=== PATIENT | male | born 1975 | race Caucasian/White ===

== ENCOUNTER 2020-01-24 10:56 | Outpatient (REF) | payer OTHER, SELFPAY ==
[2020-01-24 14:26] LABS: Alanine Aminotransferase 30 U/L (0-40); Albumin Level 4.5 g/dL (3.5-5.0); Alkaline Phosphatase 74 U/L (39-117); Anion Gap 12 (12-20); Aspartate Amino Transferase 19 U/L (5-37); Bilirubin Total 0.5 mg/dL (0.0-1.0); Blood Urea Nitrogen 13 mg/dL (9-16); Carbon Dioxide 24 mmol/L (22-29); Chloride 106 mmol/L (96-108); Cholesterol 200 mg/dL; Estimated Glomerular Filt Rate > 60; Glucose Fasting 91 mg/dL (60-99); HDL Cholesterol 32 mg/dL; LDL Cholesterol Calculated 130 mg/dl; Potassium 4.5 mmol/l (3.3-5.1); Sodium 137 mmol/L (135-145); Total Protein 6.8 g/dL (6.5-8.0); Triglycerides 192 mg/dL
[2020-01-24 14:48] LABS: TSH reflex Free T4 0.62 mIU/mL (0.32-4.0)
[2020-01-27 12:26] LABS: Testosterone, Total 536 ng/dL (250-1100)
== END 2020-01-24 10:57 | disposition home or self-care (01) ==
LOC: HO.HMGCLDS 10:56
PROVIDERS: PCP Nurse Practitioner Family; Visit Provider Nurse Practitioner Family
DX: H53.8 Other visual disturbances (principal); R68.82 Decreased libido
CPT/HCPCS: 80053; 80061; 84403; 84443

== ENCOUNTER → 2020-03-27 14:25 | Outpatient (BNVA) | payer OTHER, SELFPAY | PROVIDERS: PCP Nurse Practitioner Family; Visit Provider Urology | DX: N52.9 Male erectile dysfunction, unspecified (principal); R68.82 Decreased libido | CPT/HCPCS: 99202 ==

== ENCOUNTER 2020-09-03 15:21 | Outpatient (REF) | payer OTHER, SELFPAY ==
--- NOTE | ~2020-09-03 | XR_ITS ---
EXAMINATION: XR CHEST CLINICAL INFORMATION: Cough COMPARISON: Previous chest x-ray February 2016 TECHNIQUE: 2 views of the chest were obtained. FINDINGS: The cardiac and mediastinal contours are normal. The lungs are clear. There is no pleural effusion or pneumothorax. Bony structures are unremarkable. XR/XR chest 2V IMPRESSION: Unremarkable examination.
== END 2020-09-03 15:22 | disposition home or self-care (01) ==
LOC: HO.HMGCX 15:21
PROVIDERS: PCP Nurse Practitioner Family; Visit Provider Hospitalist
DX: Z20.822 Contact with and (suspected) exposure to COVID-19 (principal); R05 Cough
CPT/HCPCS: 71046; U0003; U0005

== ENCOUNTER 2022-03-11 07:54 | Outpatient (REF) | payer OTHER, SELFPAY ==
[2022-03-11 11:27] LABS: Appearance Urine Clear; Color Urine Yellow; Glucose Urine UA Negative (Negative); Leukocyte Esterase Urine Negative (Negative); MANUAL DIFF FLAG NO; Nitrite Urine Negative (Negative); PH 6.5 (5.0-9.0); Specific Gravity - Urine 1.015 (1.005-1.025); Urine Blood Negative (Negative); Urine Ketones Negative (Negative); Urine Protein Negative (Neg-Trace)
[2022-03-11 11:47] LABS: Basophils Percent Auto 0.3 % (0-2); Eosinophils Absolute Auto 0.3 X10*3/uL (0.0-0.4); Eosinophils Percent Auto 3.2 % (0-4); Hematocrit 43.6 % (42.0-52.0); Imm Gran Abs Auto 0.07 X10*3/uL (0.00-0.03); Imm Gran Pct Auto 0.8 % (0.0-0.4); Lymphocytes Absolute Auto 2.2 X10*3/uL (1.2-4.9); Lymphocytes Percent Auto 25.1 % (20-40); Mean Corpuscular HGB Conc 34.4 g/dl (31.0-36.0); Mean Corpuscular Hemoglobin 30.9 pg (27.0-33.0); Mean Corpuscular Volume 89.7 fL (80.0-98.0); Mean Platelet Volume 9.8 fL (9.4-12.4); Monocytes Absolute Auto 0.6 X10*3/uL (0.1-1.2); Monocytes Percent Auto 6.8 % (2-11); Neutrophils Absolute Auto 5.5 x10*3/uL (2.0-8.3); Neutrophils Percent Auto 63.8 % (45-73); Platelet Count 348 X10*3/uL (160-400); Red Blood Count 4.86 X10*6/uL (4.60-5.80); Red Cell Distribution Width 12.2 % (11.0-16.0); White Blood Count 8.6 X10*3/uL (4.8-10.8)
[2022-03-11 12:10] LABS: Alanine Aminotransferase 37 U/L (0-40); Albumin Level 4.4 g/dL (3.5-5.0); Alkaline Phosphatase 85 U/L (39-117); Anion Gap 13 (12-20); Aspartate Amino Transferase 21 U/L (5-37); Bilirubin Total 0.6 mg/dL (0.0-1.0); Blood Urea Nitrogen 14 mg/dL (9-16); Calcium 9.3 mg/dL (8.4-10.2); Carbon Dioxide 23 mmol/L (22-29); Chloride 107 mmol/L (96-108); Cholesterol 225 mg/dL; Estimated Glomerular Filt Rate > 60; Glucose Fasting 105 mg/dL (60-99); HDL Cholesterol 31 mg/dL; LDL Cholesterol Calculated 169 mg/dl; Potassium 4.4 mmol/L (3.3-5.1); Sodium 139 mmol/L (135-145); Total Protein 6.9 g/dL (6.5-8.0); Triglycerides 125 mg/dL
[2022-03-11 12:29] LABS: TSH reflex Free T4 0.83 uIU/mL (0.32-4.0)
== END 2022-03-11 07:55 | disposition home or self-care (01) ==
LOC: HO.HMGCLDS 07:54
PROVIDERS: PCP Nurse Practitioner Family; Visit Provider Nurse Practitioner Family
DX: Z00.00 Encounter for general adult medical examination without abnormal findings (principal)
CPT/HCPCS: 36415; 80053; 80061; 81003; 84443; 85025

== ENCOUNTER → 2022-04-20 09:02 | Outpatient (BNVA) | payer OTHER, SELFPAY | PROVIDERS: PCP Nurse Practitioner Family; Visit Provider Physician Assistant | DX: Z12.11 Encounter for screening for malignant neoplasm of colon (principal); K21.9 Gastro-esophageal reflux disease without esophagitis | CPT/HCPCS: 99202 ==

== ENCOUNTER 2022-09-09 09:17 | Outpatient (REF) | payer OTHER, SELFPAY ==
[2022-09-09 11:31] LABS: MANUAL DIFF FLAG NO
[2022-09-09 11:38] LABS: Appearance Urine Clear; Color Urine Yellow; Glucose Urine UA Negative (Negative); Leukocyte Esterase Urine Negative (Negative); Nitrite Urine Negative (Negative); PH 5.5 (5.0-9.0); Specific Gravity - Urine 1.015 (1.005-1.025); Urine Blood Negative (Negative); Urine Ketones Negative (Negative); Urine Protein Negative (Neg-Trace)
[2022-09-09 11:39] LABS: Basophils Absolute Auto 0.1 X10*3/uL (0.0-0.2); Basophils Percent Auto 0.5 % (0-2); Hematocrit 41.3 % (42.0-52.0); Hemoglobin 14.1 g/dl (14.0-18.0); Imm Gran Abs Auto 0.04 X10*3/uL (0.00-0.03); Imm Gran Pct Auto 0.4 % (0.0-0.4); Lymphocytes Absolute Auto 2.2 X10*3/uL (1.2-4.9); Lymphocytes Percent Auto 24.3 % (20-40); Mean Corpuscular HGB Conc 34.1 g/dl (31.0-36.0); Mean Corpuscular Hemoglobin 30.5 pg (27.0-33.0); Mean Corpuscular Volume 89.4 fL (80.0-98.0); Mean Platelet Volume 9.5 fL (9.4-12.4); Monocytes Absolute Auto 0.5 X10*3/uL (0.1-1.2); Monocytes Percent Auto 5.7 % (2-11); Neutrophils Absolute Auto 6.3 x10*3/uL (2.0-8.3); Neutrophils Percent Auto 69.1 % (45-73); Platelet Count 284 X10*3/uL (160-400); Red Blood Count 4.62 X10*6/uL (4.60-5.80); Red Cell Distribution Width 12.2 % (11.0-16.0); White Blood Count 9.1 X10*3/uL (4.8-10.8)
[2022-09-09 12:37] LABS: Alanine Aminotransferase 29 U/L (0-40); Albumin Level 4.3 g/dL (3.5-5.0); Alkaline Phosphatase 74 U/L (39-117); Anion Gap 12 (12-20); Aspartate Amino Transferase 20 U/L (5-37); Bilirubin Total 0.6 mg/dL (0.0-1.0); Blood Urea Nitrogen 15 mg/dL (9-16); Calcium 9.4 mg/dL (8.4-10.2); Carbon Dioxide 25 mmol/L (22-29); Chloride 106 mmol/L (96-108); Cholesterol 211 mg/dL; Estimated Glomerular Filt Rate > 60; Glucose Fasting 84 mg/dL (60-99); HDL Cholesterol 34 mg/dL; LDL Cholesterol Calculated 151 mg/dl; Magnesium 2.1 mg/dL (1.6-2.6); Potassium 3.9 mmol/L (3.3-5.1); Sodium 139 mmol/L (135-145); Total Protein 6.8 g/dL (6.5-8.0); Triglycerides 133 mg/dL
[2022-09-09 12:55] LABS: TSH reflex Free T4 0.58 uIU/mL (0.32-4.0)
== END 2022-09-09 09:18 | disposition home or self-care (01) ==
LOC: HO.HMGCLDS 09:17
PROVIDERS: PCP Nurse Practitioner Family; Visit Provider Nurse Practitioner Family
DX: Z00.00 Encounter for general adult medical examination without abnormal findings (principal); M54.16 Radiculopathy, lumbar region
CPT/HCPCS: 36415; 80053; 80061; 81003; 83735; 84443; 85025

== ENCOUNTER 2022-11-05 09:00 | Outpatient (REF) | payer OTHER, SELFPAY ==
--- NOTE | ~2022-11-05 | MR_ITS ---
EXAMINATION: MR LUMBAR SPINE WITHOUT CONTRAST CLINICAL INFORMATION: Prior surgery. Low back pain. Leg pain. COMPARISON: None available. TECHNIQUE: Multiplanar, multisequence imaging was obtained. FINDINGS: VERTEBRAL BODIES AND PARASPINAL STRUCTURES: The marrow signal is homogeneous. The patient is status post posterior lumbar interbody fusion at the L4-L5 and L5-S1 levels. No compression fractures or subluxations are seen. The paraspinal soft tissues are normal. Incidental left-sided pelvic kidney noted. There are mild degenerative changes of the sacroiliac joints. CONUS MEDULLARIS AND CAUDA EQUINE: The distal cord, conus tip, and cauda equina nerve roots appear normal. SPINAL LEVELS: L1-L2: No disc pathology, central canal stenosis, or foraminal narrowing. L2-L3: Normal appearance of the disc. No central canal stenosis or foraminal narrowing. L3-L4: Very mild disc bulge and mild facet arthropathy without central canal stenosis. Bulging disc mildly encroaches upon the neural foramina. L4-L5: Chronic postoperative changes with fusion hardware in place. No central canal stenosis. Bony spurring with very mild left foraminal encroachment. L5-S1: Fusion changes with hardware in place. Left-sided laminectomy defect. Presumed scar tissue in the left ventral epidural soft tissues around the left S1 nerve root. Bony spurring contributes to mild right foraminal encroachment. No central canal stenosis. MR/MR lumbar spine wo con IMPRESSION: Status post posterior lumbar interbody fusion with hardware instrumentation at the L4-L5 and L5-S1 levels. Presumed scar tissue in the left ventral epidural soft tissues at the L5-S1 level around the left S1 nerve root sleeve without mass effect. No focal disc protrusion or central canal stenosis. Mild generalized disc bulge and bilateral foraminal narrowing at the L3-L4 level.
== END 2022-11-05 09:01 | disposition home or self-care (01) ==
LOC: HO.MRI 09:00
PROVIDERS: PCP Nurse Practitioner Family; Visit Provider Nurse Practitioner Family
DX: M54.16 Radiculopathy, lumbar region (principal)
CPT/HCPCS: 72148

== ENCOUNTER 2022-12-16 10:35 | Outpatient (AMB) | payer OTHER, SELFPAY ==
--- NOTE | 2022-12-16 10:44 | A.SPINEOV_ITS ---
Intake Intake Visit Reasons: low back pain Intake Note: Mr. Ferrari is here today c/o low back pain. MRI done @ [facility]. Triple Air Valve Tester Required: No Allergies oxycodone [Percocet] Allergy (Intermediate, Verified 10/07/22 13:58) hives Assessment & Plan Assessment & Plan (1) Chronic lumbar radiculopathy: Code(s): M54.16 - Radiculopathy, lumbar region Plan Dear colleague, Thank you for referring Paul to our office today. Paul is a pleasant 47-year-old male who comes in today with a chief complaint of chronic persistent low back pain despite extensive treatment for his pain. He has a history of a prior 2 level fusion at L4-5, L5-S1 done at [facility]. He reports a very complex historical recount of his back pain in symptomology. He states that he has had left-sided footdrop, left-sided numbness, and left leg numbness since before his surgery for NEOS which never got better. He also states that he has unspecified neck and shoulder pain due to a previous neck surgery. He reports that sometimes he has bilateral radiation of pain down his posterior legs, sometimes he has neck pain that radiates all the way down his back into his legs, and that other times he has isolated pains in his low back. After spending some time in discussion, he reported that his acute symptoms today which bring him into the office are different from the pain that he originally had when seeing providers at [facility] for his previous surgery. The pain he experiences today which brought him to our office is reportedly a low back pain with radiation down his posterior thigh on the right side, terminating at the bottom of his right foot. He reports that he has tried Tylenol, ibuprofen, ice, heat, tens units, aqua therapy, physical therapy, customer care associate, cortisone injections, and acupuncture without alleviation of his symptoms. PMH: GERD, erectile dysfunction. Social hx: Patient does not smoke, reports no substance use. Medications: Albuterol, lamotrigine, omeprazole, sildenafil. Allergies: Percocet. Physical exam: The patient has 4/5 strength with dorsiflexion, knee extension, and hip flexion on the left side. He reports that this is pain limited. Rest of strength is 5/5 in upper and lower extremities. He is able to rise from a seated position without difficulty, but he ambulates with a cane. Gait is somewhat antalgic when using cane. He reports decreased sensation of his entire left lower extremity, sparing his great toe, but reports decreased sensation of his great toe on the right side sparing the rest of his lower extremity. (-) clonus, (-) Olivas's, (-) straight leg raise bilaterally. Imaging review: MRI of the lumbar spine completed in October of this year shows stable fusion of L4-5 and L5-S1. No significant central canal stenosis noted. No significant foraminal stenosis noted on either side of the lumbar spine. Disc height is maintained with no significant disc protrusion. Impression: Paul is a 47-year-old male who comes in with complex chronic low back pain with radicular symptoms down his right lower extremity. Generally speaking his MRI is unremarkable and shows what appears to be a stable L4-5 and L5-1 fusion, with no adjacent segment disease noted. The MRI was reviewed alongside MARILY Yates, and we are both unable to pinpoint any etiology for his symptoms. 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 We discussed the possibility of a spinal cord stimulator which he is not willing to pursue at this time. He did extensively as questions about stem cell research, which I informed him we are unable to provide accurate information about due to the lack of research on this topic in our field for patient with his symptoms. Thank you for allowing us to care for your patient. The total time spent with this visit with this patient was 45 minutes reviewing history, physical exam, MRI imaging review, and implementation of treatment plan or further diagnostic testing Mark Don MD,PhD [facility] Coding Level of Care Code New Pt Level 4 (50683) Diagnoses Chronic lumbar radiculopathy M54.16
== END 2022-12-16 11:41 | disposition home or self-care (01) ==
PROVIDERS: PCP Nurse Practitioner Family; Referring Provider Nurse Practitioner Family; Visit Provider Physician Assistant
DX: M54.16 Radiculopathy, lumbar region (principal)
CPT/HCPCS: 99204

== ENCOUNTER → 2022-12-16 10:35 | Outpatient (BNVA) | payer OTHER, SELFPAY | PROVIDERS: PCP Nurse Practitioner Family; Referring Provider Nurse Practitioner Family; Visit Provider Physician Assistant ==

== ENCOUNTER 2023-01-17 10:33 | Day surgery (SDC) | payer OTHER, SELFPAY ==
[2022-10-07 13:58] VITALS: BMI 27.8
--- NOTE | 2022-10-10 10:24 | P.CONAN_ITS ---
HPI - Anesthesia Eval Consult details Narrative: 47yo M for Upper Endoscopy and Colonoscopy [facility] Active Problems Active Problems: All Active Problems (Updated 09/05/22 @ 07:32 by Willie Jones [facility]) Chronic lumbar radiculopathy (Acute) Chronic GERD (Acute) Physical exam (Acute) Screening for colon cancer (Acute) Tracheobronchitis (Acute) Cough (Acute) Erectile dysfunction (Acute) Decreased sex drive (Acute) Weakness of left lower extremity (Acute) Blurred vision, bilateral (Acute) Numerous skin moles (Acute) Skin lesions (Acute) Past Medical History Medical History (Updated 09/05/22 @ 07:32 [facility] Chronic GERD Erectile dysfunction Lumbar radiculopathy Skin lesions Family History Family History Father No problems noted. Mother No problems noted. Maternal Grandmother Diabetes mellitus Sister No problems noted. Surgical History Surgical History History of back surgery History of repair of ACL No pertinent past surgical history Social History Social History Household Members: Significant Other and Children Housing: House Alcohol intake: current Alcohol intake frequency: holidays/special occasions only Alcohol type: beer Patient Tobacco Use Status: Never used Tobacco e-Cigarette/Vaping Use: Currently Using Substance Use Type: Marijuana Current occupational status: unemployed Meds Allergies Allergy/AdvReac Type Severity Reaction Status Date / Time oxycodone [Percocet] Allergy Intermediate hives Verified 10/07/22 13:58 Home Medications Medication Instructions Recorded Confirmed Last Taken Type lamotrigine 150 mg tablet 150 mg PO DAILY 04/20/22 10/07/22 Unknown History Exam Exam Date and Time: October 10, 2022 1024 Height,Weight and Vital Signs: Height 5 ft 10 in Weight 87.997 kg Pertinent Lab Results Pertinent Lab Results: Laboratory Tests 09/09/22 09/09/22 09:23 09:23 WBC 9.1 Hgb 14.1 Hct 41.3 L Plt Count 284 Sodium 139 Potassium 3.9 Chloride 106 Carbon Dioxide 25 BUN 15 Creatinine 0.83 Assessment and Plan Assessment Anesthesia Assessment: Chart Reviewed
--- NOTE | 2023-01-16 10:55 | P.CONAN_ITS ---
Documented by User: Diane Fiore NP 01/16/23 10:55 HPI - Anesthesia Eval Consult details Narrative: 47yo M for Upper Endoscopy and Colonoscopy [facility] Active Problems Active Problems: All Active Problems (Updated 09/05/22 @ 07:32 by Willie Jones, [facility]) Chronic lumbar radiculopathy (Acute) Chronic GERD (Acute) Physical exam (Acute) Screening for colon cancer (Acute) Tracheobronchitis (Acute) Cough (Acute) Erectile dysfunction (Acute) Decreased sex drive (Acute) Weakness of left lower extremity (Acute) Blurred vision, bilateral (Acute) Numerous skin moles (Acute) Skin lesions (Acute) Past Medical History Medical History PONV (postoperative nausea and vomiting) Erectile dysfunction Skin lesions Chronic GERD Lumbar radiculopathy Family History Family History Father No problems noted. Mother No problems noted. Maternal Grandmother Diabetes mellitus Sister No problems noted. Surgical History Surgical History H/O left knee surgery H/O neck surgery History of repair of ACL History of back surgery No pertinent past surgical history Social History Household Members: Significant Other and Children Housing: House Alcohol intake: current Alcohol intake frequency: holidays/special occasions only Alcohol type: beer Patient Tobacco Use Status: Never used Tobacco Tobacco use type: Cigarette Years Smoked: 10 e-Cigarette/Vaping Use: Currently Using Use of substances other than those prescribed or required for medical reasons: No Substance Use Type: Marijuana Substance Use Type Other:: RECOVERY X 15 YEARS Are you DNR?: No Advance Directives: No Advance Directives Information Provided: Yes Recently lost weight without trying: No Nutrition Risks: No Nutritional Risk Poor oral hygiene: No Current occupational status: unemployed Meds Allergies Allergy/AdvReac Type Severity Reaction Status Date / Time oxycodone [Percocet] Allergy Intermediate hives Verified 10/07/22 13:58 Home Medications Medication Instructions Recorded Confirmed Last Taken Type lamotrigine 150 mg tablet 150 mg PO DAILY 04/20/22 10/07/22 Unknown History clonidine HCl 0.2 mg tablet 0.2 mg PO BID 01/16/23 01/16/23 Unknown History Exam Height,Weight and Vital Signs: Height 5 ft 10 in Weight 87.997 kg Pertinent Lab Results Pertinent Lab Results: Laboratory Tests 09/09/22 09:23 WBC 9.1 Hgb 14.1 Hct 41.3 L Plt Count 284 Sodium 139 Potassium 3.9 Chloride 106 Carbon Dioxide 25 BUN 15 Creatinine 0.83 Assessment and Plan Assessment Anesthesia Assessment: Chart Reviewed Documented by User: Heath Garcia MD 01/17/23 12:42 PMFSH Past Medical History Medical History PONV (postoperative nausea and vomiting) Erectile dysfunction Skin lesions Chronic GERD Lumbar radiculopathy Family History Family History Father No problems noted. Mother No problems noted. Maternal Grandmother Diabetes mellitus Sister No problems noted. Family history of problems with anesthesia: No Surgical History Surgical History H/O left knee surgery H/O neck surgery History of repair of ACL History of back surgery No pertinent past surgical history History of Problems with Anesthesia: No Social History Household Members: Significant Other and Children Housing: House Alcohol intake: current Alcohol intake frequency: holidays/special occasions only Alcohol type: beer Patient Tobacco Use Status: Never used Tobacco Tobacco use type: Cigarette Years Smoked: 10 e-Cigarette/Vaping Use: Currently Using Use of substances other than those prescribed or required for medical reasons: No Substance Use Type: Marijuana Substance Use Type Other:: RECOVERY X 15 YEARS Are you DNR?: No Advance Directives: No Advance Directives Information Provided: Yes Recently lost weight without trying: No Nutrition Risks: No Nutritional Risk Poor oral hygiene: No Current occupational status: unemployed Meds Allergies Allergy/AdvReac Type Severity Reaction Status Date / Time oxycodone [Percocet] Allergy Intermediate hives Verified 10/07/22 13:58 Home Medications Medication Instructions Recorded Confirmed Last Taken Type lamotrigine 150 mg tablet 150 mg PO DAILY 04/20/22 10/07/22 Unknown History clonidine HCl 0.2 mg tablet 0.2 mg PO BID 01/16/23 01/16/23 Unknown History Exam Airway Mallampati Class: II TM Dist: >3cm Neck ROM: Full Loose/Missing/Broken Teeth: Yes Assessment and Plan Assessment Anesthesia Assessment: Anesthesia Plan Discussed Final Anesthetic Review Family History of Problems with Anesthesia: No History of Problems with Anesthesia: No NPO: Yes ASA Class: II Final Preanesthetic Review: No Changes in Pt Med Stat, Meds/Allgs Chart Reviewed, Consent Obtained/Reviewed, Anes Risks/Benef Reviewed and DNR Form (If Appl.) Patient Risk: Low Procedure Risk: Low Anesthetic Plan Anesthetic Plan: MAC: Disposition: Standard PACU
[2023-01-17 10:48] VITALS: BMI 27.4
[2023-01-17 10:52] VITALS: BP 112/78; PULSE 82; RESP 20; TEMP 36.9; O2SAT 96; BMI 27.4
--- NOTE | 2023-01-17 10:52 | P.HPSUR_ITS ---
Pre-Procedural Eval Section A Date of Service: 01/17/23 Section B Chief Complaint: GERD,Screening Details of Present Illness: father had polyps Relevant Family History (Specify if Yes): Yes Relevant Social History: Other (specify) (THC use) Present Medications: see Short Stay Collaborative assessment Medical History: Significant History (Erectile dysfunction Skin lesions Chronic GERD Lumbar radiculopathy) History of Previous Operations: Relevant previous surgery/procedure and date(s) (back surgery, ACL surgery ) Allergies: Allergies Allergy/AdvReac Type Severity Reaction Status Date / Time oxycodone [Percocet] Allergy Intermediate hives Verified 10/07/22 13:58 Review of Systems Sugical H&P ROS: Negative: Constitution, Cardiovascular, Respiratory, Neurological, Psychiatric, Hem-Onc, Allergic/Immunologic, Gastrointestinal, Ivelisse tourinary, Musculoskeletal, Integumentary, Endocrine and Eyes/Ears/Nose/Throat Exam Surgical H&P Exam: Normal: HEENT, Normal: Heart, Normal: Lungs, Normal: Extremities, Normal: Abdomen, Normal: Skin and Normal: Neurological Plan Diagnosis/Plan: Unchanged I have reviewed the history and physical and performed a pertinent physical examination on my patient. No changes have occurred unless specified. Time Spent With Patient Time: Total time managing care of this patient today ____ minutes.
[2023-01-17] MEDS: Lactated Ringers 1,000 ML 100 ML IVCONT (11:21)
--- NOTE | 2023-01-17 11:34 | W.PM.OPN ---
Operative Note Operative Note Date of Service: 01/17/23 Narrative: Operative Information Procedure Description: EGD, Colonoscopy Indication: GERD, colo screen Anesthesia: MAC FLEXIBLE TRANSORAL UPPER GASTROINTESTINAL ENDOSCOPY AND COLONOSCOPY PROCEDURE NOTE UPPER ENDOSCOPY Consent: Indications for the procedure and potential complications of bleeding, perforation, reaction to medications and missed diagnosis were discussed with the patient and informed consent was obtained. Instrument: Olympus GIF H 190 J mid size upper endoscope Monitoring: Vital signs and clinical assessment, continuous EKG monitoring, Pulse oximetry, Carbon Dioxide monitoring and blood pressure monitoring were done throughout the procedure. Procedure: The patient was placed in the left lateral decubitis position and pre-procedure medications were administered and a bite block was placed. The endoscope was inserted into the mouth and advanced under direct vision to the third part of duodenum. A careful inspection was made as the upper endoscope was withdrawn including a retroflexed examination of the proximal stomach; Findings and interventions are described below. Findings: Larynx:normal Esophagus: GE junction at 39 cm, diaphragm hiatus at 39 cm, edema and congestion at GEJ, possible small islands of barretts, bx taken, also taken from distal esophagus Stomach: Normal mucosa. Grade 2 flap valve on retroflexed examination of the cardia. Duodenum: Normal bulb and descending duodenum, Intervention: Biopsies as noted above COLONOSCOPY Instrument: Olympus variable stiffness pediatric scope 190L Colonoscopy Monitoring: Vital signs and clinical assessment, continuous EKG monitoring, Pulse oximetry, Carbon Dioxide monitoring and blood pressure monitoring were done throughout the procedure. Colon withdrawal time was 14 minutes. Procedure: The patient was placed in the left lateral decubitis position and pre-procedure medications were administered. After a digital rectal examination of the ano-rectum, the video colonoscope was inserted into the rectum and advanced through the colon to the cecum/TI. The colonoscope was slowly withdrawn in a retrograde panoramic fashion and the colon mucosa was carefully examined including a retroflexed view of the rectum. Findings and interventions are described below. Procedure Difficulty: Findings: Terminal Ileum-normal Cecum:normal Ascending Colon: normal Transverse Colon -normal Descending Colon: 4-5 mm sessile polyp removed with cold forceps Sigmoid Colon: 4-5 mm sessile polyp removed with cold forceps Rectum: Retroflexion with small internal hemorrhoids, grade I Anorectum - normal Colon preparation: [place] Bowel Preparation Scale Right colon; 2 Transverse colon: 2 Left colon; 3 (0 = Unprepared colon segment with mucosa not seen due to solid stool that cannot be cleared. 1 = Portion of mucosa of the colon segment seen, but other areas of the colon segment not well seen due to staining, residual stool and/or opaque liquid. 2 = Minor amount of residual staining, small fragments of stool and/or opaque liquid, but mucosa of colon segment seen well. 3 = Entire mucosa of colon segment seen well with no residual staining, small fragments of stool or opaque liquid) Impression and Post Procedure Diagnosis: Endoscopy Findings: esophagitis Colonoscopy Findings: polyps internal hemorrhoids Plan: Await Pathology results Repeat Colonoscopy in 5-7 years if adenomaotus, 10 yrs if hyperplastic or earlier if clinically indicated High fiber diet leaflet avoid straining at stool, epsom salts and sitz bath, anusol supps or cream reflux precautions Above findings were reviewed with the patient and relevant handouts were provided if indicated.
[2023-01-17 12:20] VITALS: BP 83/46; PULSE 69; RESP 20; TEMP 36.1; O2SAT 95
[2023-01-17 12:25] VITALS: BP 85/45; PULSE 66; RESP 20; O2SAT 97
[2023-01-17 12:30] VITALS: BP 92/54; PULSE 60; RESP 20; O2SAT 98
[2023-01-17 12:35] VITALS: BP 108/64; PULSE 70; RESP 20; O2SAT 98
[2023-01-17 12:50] VITALS: BP 104/72; PULSE 67; RESP 20; TEMP 36.3; O2SAT 98
== END 2023-01-17 13:57 | disposition home or self-care (01) ==
PROVIDERS: PCP Nurse Practitioner Family; Visit Provider Internal Medicine Gastroenterology
PROC: (CPT 43239; principal; 2023-01-17 12:20)
DX: K21.9 Gastro-esophageal reflux disease without esophagitis (principal); K22.89 Other specified disease of esophagus; Z12.11 Encounter for screening for malignant neoplasm of colon; D12.4 Benign neoplasm of descending colon; K64.0 First degree hemorrhoids; F17.290 Nicotine dependence, other tobacco product, uncomplicated; Z79.899 Other long term (current) drug therapy
CPT/HCPCS: 43239; 45380; 88305; J2704

== ENCOUNTER → 2023-01-17 10:33 | Outpatient (BNV) | payer OTHER, SELFPAY | PROVIDERS: PCP Nurse Practitioner Family; Visit Provider Internal Medicine Gastroenterology | DX: Z12.11 Encounter for screening for malignant neoplasm of colon (principal); K21.00 Gastro-esophageal reflux disease with esophagitis, without bleeding; D12.4 Benign neoplasm of descending colon; D12.5 Benign neoplasm of sigmoid colon; K64.0 First degree hemorrhoids | CPT/HCPCS: 43239; 45380 ==

== ENCOUNTER 2023-03-14 16:32 | Outpatient (AMB) | payer OTHER, SELFPAY ==
--- NOTE | 2023-03-14 16:23 | A.OFFPC_ITS ---
Vital Signs 03/14/23 16:36 Height 5 ft 10 in Weight 194 lb BMI 27.8 BP 110/80 Blood Pressure Location Rt brachial Position Sitting Pulse 98 Pulse Source Pulse Oximeter Pulse Oximetry (%) 98 Oxygen Delivery Method Room Air Intake Visit Reasons: Annual PE Intake Note: Patient here for physical exam. no new issues or concerns. Allergies oxycodone [Percocet] Allergy (Intermediate, Verified 03/14/23 16:37) hives Medication List - Last Reviewed 03/14/23 by VALERIA Marrufo albuterol sulfate 90 mcg/actuation 2 puffs inhalation Q6H PRN clonidine HCl 0.2 mg PO BID lamotrigine 150 mg PO DAILY lurasidone (Latuda) 20 mg PO DAILY omeprazole 20 mg PO DAILY sildenafil 100 mg PO DAILY PRN 14 days Tobacco use date assessed: 03/14/23 Dental Screening Dental Screen Date: 03/14/23 Did you have a dental visit in the last 12 months?: Yes Did you have a dental problem in the last 6 months where you did not have access to dental care?: No Was dental information given to patient?: Patient has dentist HPI Annual PE HPI Details Pt is here for a PE. Will order labs. Colon screen is up to date. Pt has a therapist he sees weekly, and a psychiatrist he sees once a month. pt recently started latuda, reports it is starting to help. denies any si or hi. He is frustrated because of his ongoing lower back pain, recently seen at our spine center (see recent note). Pt is using a cane. [facility] Medical History (Updated 03/14/23 @ 17:01 by AMAYA Laird) PONV (postoperative nausea and vomiting) Erectile dysfunction Skin lesions Chronic GERD Lumbar radiculopathy Surgical History History of esophagogastroduodenoscopy (EGD) Hx of colonoscopy H/O left knee surgery H/O neck surgery History of repair of ACL History of back surgery No pertinent past surgical history Family History Father No problems noted. Mother No problems noted. Maternal Grandmother Diabetes mellitus Sister No problems noted. Social History Household Members: Significant Other and Children Housing: House Alcohol intake: current Alcohol intake frequency: holidays/special occasions only Alcohol type: beer Patient Tobacco Use Status: Former Tobacco user Quit Date: 2017 Tobacco use type: Cigarette Years Smoked: 10 e-Cigarette/Vaping Use: Currently Using Substance Use Type: Marijuana Current occupational status: unemployed Cognitive needs: No Hearing needs: No Vision needs: No Questionnaire PHQ-9 Over the last 2 weeks, how often have you been bothered by any of the following problems? 1. Little interest or pleasure in doing things: more than half the days 2. Feeling down, depressed, or hopeless: more than half the days 3. Trouble falling or staying asleep, or sleeping too much: nearly every day 4. Feeling tired or having little energy: more than half the days 5. Poor appetite or overeating: several days 6. Feeling bad about yourself - or that you are a failure or have let yourself or your family down: more than half the days 7. Trouble concentrating on things, such as reading the newspaper or watching television: more than half the days 8. Moving or speaking so slowly that other people could have noticed. Or the opposite - being so fidgety or restless that you have been moving around a lot more than usual: more than half the days 9. Thoughts that you would be better off or of hurting yourself in some way: several days Total score: 17 Depression Screening Interpretation: Positive Depression Screening Follow-up: E xisting condition, In treatment and New Medication prescribed (followed by psychiatry) Depression Screening Done: Yes 71531 - PHQ-9 Billing: Yes Source: Developed by Drs. Irving Mae, Barbra Connors, Colton Fall and colleagues, with an educational jonathan from [employer]. Thrive Questionnaire Date Thrive assessed: 03/14/23 I am a: Patient What is your living situation today?: I have a steady place to live Within the past 12 months, did the food you bought not last and you didn't have the money to get more?: Never true Within the past 12 months, did you worry whether your food would run out before you got money to buy more?: Never true Do you have trouble paying for medicines?: No Do you have trouble getting transportation to medical appointments?: No Do you have trouble paying your heating and electricity bill?: No Do you have trouble taking care of your child, family member or friend?: No Do you have trouble with day-to-day activities such as bathing, preparing meals, shopping, managing finances, etc.?: Yes Are you currently unemployed and looking for a job?: No Are you interested in more education?: No Currently or been in a relationship where the following occur: no concerns reported AUDIT C Alcohol Use Questionnaire (AUDIT-C) 1. How often do you have a drink containing alcohol?: Monthly or less 2. How many drinks containing alcohol do you have on a typical day when you are drinking?: 1 or 2 3. How often do you have six or more drinks on one occasion?: Never Total Score: 1 JAKI-7 AMB Questionnaire JAKI-7 Date JAKI - 7 assessed: 03/14/23 Source: Developed by Drs. Irving Mae, Barbra Connors, Colton Fall and colleagues, with an educational jonathan from [employer]. JAKI-7 Assessment Billing JAKI-7 Assessment Tool: pt declined-do not bill Review of Systems Const Denies chills and Denies fever(s) Eyes Denies blurry vision ENT Denies vertigo, Denies dizziness and Denies sore throat Card Denies chest pain at rest, Denies chest pain with activity, Denies diaphoresis, Denies dyspnea and Denies dyspnea on exertion Resp Denies cough, Denies dyspnea, Denies dyspnea on exertion and Denies wheezing GI Denies abdominal pain, Denies melena, Denies hematochezia, Denies constipation, Denies diarrhea and Denies loose stools Denies hematuria Musc Denies numbness and Denies tingling Skin/Breast Denies lesions Neuro Denies vertigo, Denies dizziness, Denies numbness and Denies tingling Psych Denies anxiety, Denies depression, Denies homicidal ideation, Denies suicidal ideation and Denies other (substance abuse) Aller/Immun Denies wheezing Physical exam (Primary Care) Vital Signs: Last Vital Signs Pulse 98 03/14/23 16:36 BP 110/80 03/14/23 16:36 Pulse Ox 98 03/14/23 16:36 Oxygen Delivery Method Room Air 03/14/23 16:36 BMI result Body Mass Index 27.8 Tobacco/Smoking Status: Tobacco use Status Tobacco use date assessed 03/14/23 03/14/23 16:39 Patient Tobacco Use Status Former Tobacco user 03/14/23 16:39 Tobacco use type Cigarette 03/14/23 16:23 e-Cigarette/Vaping Use Currently Using 03/14/23 16:23 Depression Screening Interpretation: Positive Depression Screening Follow-up: Existing condition, In treatment and New Medication prescribed (followed by psychiatry) Thrive Assessment: Date of Thrive Assessment Date Thrive assessed 03/10/22 03/14/23 16:23 Currently or been in a relationship where the following occur: no concerns reported Const Other: using a cane (failed back surgery syndrome) General: cooperative Nutritional Appearance: well nourished Orientation/consciousness: patient oriented x3 HENMT Head: Yes normal to inspection, Yes normocephalic and Yes atraumatic Ears: TM's normal bilaterally Eyes General: appearance normal, both eyes and all related structures Alignment and Position: alignment normal and position normal Neck Neck: Yes normal visual inspection and Yes no lymphadenopathy Thyroid: Thyroid normal Resp Effort & Inspection: normal respiratory effort Auscultation: clear to auscultation bilaterally Cardio Rate: regular rate Rhythm: regular rhythm Heart sounds: S1 normal heart sound present, S2 normal heart sound present and no murmurs GI Palpation (GI): Soft to palpation and nontender Auscultation: normal bowel sounds Male General Exam: Yes normal external exam Penis: normal penis Scrotum: scrotum normal, testes descended bilaterally and no inguinal hernias Testes: no testicular mass Skin Rashes: no rashes Neuro Other: abnormal gait, weakness to LLE, muscle atrophy noted, uses cane. + upper extrem strength General: patient oriented x3 Romberg Test: Negative Extrem Other: left lower extrem muscle atrophy Psych Appearance: grossly normal Mental Status: mental status grossly normal Speech and movement: Normal speech and movement present Affect: normal affect Attitude: cooperative Thought process: Normal thought process present Thought content: Normal thought content present Insight: Good insight present (Psych) Judgement: Good judgement present (Psych) Assessment and Plan Assessment & Plan (1) Screening for prostate cancer: Code(s): Z12.5 - Encounter for screening for malignant neoplasm of prostate (2) Chronic lumbar radiculopathy: Code(s): M54.16 - Radiculopathy, lumbar region (3) Weakness of left lower extremity: Code(s): R29.898 - Other symptoms and signs involving the musculoskeletal system (4) Failed back syndrome: Code(s): M96.1 - Postlaminectomy syndrome, not elsewhere classified (5) Encounter for routine adult physical exam with abnormal findings: Code(s): Z00.01 - Encounter for general adult medical examination with abnormal findings (6) Depression: Code(s): F32.A - Depression, unspecified Plan: seeing psychiatry and psychology Orders: Orders TSH reflex Free T4 Today Z00.00 - Encounter for general adult medical examination without abnormal findings UA CC w/rflx Micro + Cult Today Z00.00 - Encounter for general adult medical examination without abnormal findings Lipid Panel Today Z00.00 - Encounter for general adult medical examination wit hout abnormal findings Complete Blood Count Auto Diff Today Z00.00 - Encounter for general adult medical examination without abnormal findings Comprehensive [place]. Panel Fast Today Z00.00 - Encounter for general adult medical examination without abnormal findings Prostate Specific Antigen Scr Today Z12.5 - Encounter for screening for malignant neoplasm of prostate Coding Level of Care Code Est Pt Prev Care 40-64y(56925) Diagnoses Screening for prostate cancer Z12.5 Chronic lumbar radiculopathy M54.16 Weakness of left lower extremity R29.898 Failed back syndrome M96.1 Encounter for routine adult physical exam with abnormal findings Z00.01 Depression F32.A
[2023-03-14 16:36] VITALS: BP 110/80; PULSE 98; O2SAT 98; BMI 27.8
== END 2023-03-14 17:03 | disposition home or self-care (01) ==
PROVIDERS: Visit Provider Nurse Practitioner Family
DX: Z00.00 Encounter for general adult medical examination without abnormal findings (principal); M54.16 Radiculopathy, lumbar region; R29.898 Other symptoms and signs involving the musculoskeletal system; M96.1 Postlaminectomy syndrome, not elsewhere classified; F32.A Depression, unspecified; Z12.5 Encounter for screening for malignant neoplasm of prostate
CPT/HCPCS: 99396

== ENCOUNTER 2023-03-22 09:40 | Outpatient (REF) | payer OTHER, SELFPAY ==
[2023-03-22 11:10] LABS: MANUAL DIFF FLAG NO
[2023-03-22 11:18] LABS: Basophils Percent Auto 0.3 % (0-2); Hemoglobin 13.9 g/dl (14.0-18.0); Imm Gran Abs Auto 0.03 X10*3/uL (0.00-0.03); Imm Gran Pct Auto 0.3 % (0.0-0.4); Lymphocytes Absolute Auto 2.7 X10*3/uL (1.2-4.9); Mean Corpuscular HGB Conc 33.9 g/dl (31.0-36.0); Mean Corpuscular Hemoglobin 30.3 pg (27.0-33.0); Mean Corpuscular Volume 89.5 fL (80.0-98.0); Mean Platelet Volume 9.3 fL (9.4-12.4); Monocytes Absolute Auto 0.6 X10*3/uL (0.1-1.2); Monocytes Percent Auto 6.1 % (2-11); Neutrophils Percent Auto 64.3 % (45-73); Platelet Count 315 X10*3/uL (160-400); Red Blood Count 4.58 X10*6/uL (4.60-5.80); Red Cell Distribution Width 12.2 % (11.0-16.0); White Blood Count 9.4 X10*3/uL (4.8-10.8)
[2023-03-22 12:20] LABS: Alanine Aminotransferase 31 U/L (0-40); Albumin Level 4.2 g/dL (3.5-5.0); Alkaline Phosphatase 88 U/L (39-117); Anion Gap 11 (12-20); Aspartate Amino Transferase 20 U/L (5-37); Bilirubin Total 0.3 mg/dL (0.0-1.0); Blood Urea Nitrogen 14 mg/dL (9-16); Calcium 9.1 mg/dL (8.4-10.2); Carbon Dioxide 26 mmol/L (22-29); Chloride 105 mmol/L (96-108); Cholesterol 192 mg/dL (<200); Estimated Glomerular Filt Rate > 60; Glucose Fasting 86 mg/dL (60-99); HDL Cholesterol 34 mg/dL (>40); LDL Cholesterol Calculated 139 mg/dL (<100); Sodium 138 mmol/L (135-145); Total Protein 6.9 g/dL (6.5-8.0); Triglycerides 99 mg/dL (<150)
[2023-03-22 12:31] LABS: Prostate Specific Antigen Scr 0.41 ng/mL (<0.05-4.0)
[2023-03-22 12:37] LABS: TSH reflex Free T4 0.64 uIU/mL (0.32-4.0)
[2023-03-22 15:04] LABS: Appearance Urine Clear; Color Urine Yellow; Glucose Urine UA Negative (Negative); Leukocyte Esterase Urine Negative (Negative); Nitrite Urine Negative (Negative); PH 5.5 (5.0-9.0); Specific Gravity - Urine 1.015 (1.005-1.025); Urine Blood Negative (Negative); Urine Ketones Negative (Negative); Urine Protein Negative (Neg-Trace)
== END 2023-03-22 09:41 | disposition home or self-care (01) ==
LOC: HO.HMGCLDS 09:40
PROVIDERS: PCP Nurse Practitioner Family; Visit Provider Nurse Practitioner Family
DX: Z00.00 Encounter for general adult medical examination without abnormal findings (principal); Z20.2 Contact with and (suspected) exposure to infections with a predominantly sexual mode of transmission; Z12.5 Encounter for screening for malignant neoplasm of prostate
CPT/HCPCS: 36415; 80053; 80061; 81003; 84153; 84443; 85025

== ENCOUNTER 2023-04-18 10:24 | Outpatient (REF) | payer OTHER, SELFPAY ==
[2023-04-18 13:21] LABS: MANUAL DIFF FLAG NO
[2023-04-18 13:33] LABS: Basophils Percent Auto 0.3 % (0-2); Eosinophils Absolute Auto 0.1 X10*3/uL (0.0-0.4); Eosinophils Percent Auto 0.6 % (0-4); Hemoglobin 15.4 g/dl (14.0-18.0); Imm Gran Abs Auto 0.05 X10*3/uL (0.00-0.03); Imm Gran Pct Auto 0.4 % (0.0-0.4); Lymphocytes Absolute Auto 2.6 X10*3/uL (1.2-4.9); Lymphocytes Percent Auto 21.6 % (20-40); Mean Corpuscular Volume 88.7 fL (80.0-98.0); Mean Platelet Volume 9.6 fL (9.4-12.4); Monocytes Absolute Auto 0.6 X10*3/uL (0.1-1.2); Monocytes Percent Auto 4.7 % (2-11); Neutrophils Absolute Auto 8.5 x10*3/uL (2.0-8.3); Neutrophils Percent Auto 72.4 % (45-73); Platelet Count 328 X10*3/uL (160-400); Red Blood Count 4.96 X10*6/uL (4.60-5.80); Red Cell Distribution Width 12.3 % (11.0-16.0); White Blood Count 11.8 X10*3/uL (4.8-10.8)
[2023-04-18 13:56] LABS: Iron 129 mcg/dL (45-160); Percent Iron Saturation 39 % (15-50); Total Iron Binding Capacity 327 mcg/dL (228-428); Unsaturated Iron Binding 198 ug/dL
[2023-04-18 14:10] LABS: Ferritin 139 ng/mL (20-250)
[2023-04-18 14:16] LABS: Folate 9.2 ng/mL (> or = 4.0); Vitamin B12 707 pg/mL (200-900)
== END 2023-04-18 10:25 | disposition home or self-care (01) ==
LOC: HO.HMGCLDS 10:24
PROVIDERS: PCP Nurse Practitioner Family; Visit Provider Nurse Practitioner Family
DX: D64.9 Anemia, unspecified (principal)
CPT/HCPCS: 36415; 82607; 82728; 82746; 83540; 85025

== ENCOUNTER 2023-04-28 08:45 | Outpatient (REF) | payer OTHER, SELFPAY ==
--- NOTE | ~2023-04-28 | XR_ITS ---
EXAMINATION: XR CHEST CLINICAL INFORMATION: Elevated white blood cells count COMPARISON: 09/13/2020 TECHNIQUE: 2 views of the chest were obtained. FINDINGS: No significant abnormality is noted involving the heart, lungs, mediastinum, bony thorax or soft tissues. XR/XR chest 2V IMPRESSION: No active cardiopulmonary disease and no interval change
[2023-04-28 11:19] LABS: MANUAL DIFF FLAG NO
[2023-04-28 11:32] LABS: Basophils Percent Auto 0.3 % (0-2); Eosinophils Absolute Auto 0.2 X10*3/uL (0.0-0.4); Eosinophils Percent Auto 1.2 % (0-4); Hematocrit 44.5 % (42.0-52.0); Hemoglobin 15.2 g/dl (14.0-18.0); Imm Gran Abs Auto 0.06 X10*3/uL (0.00-0.03); Imm Gran Pct Auto 0.5 % (0.0-0.4); Lymphocytes Absolute Auto 2.5 X10*3/uL (1.2-4.9); Lymphocytes Percent Auto 19.6 % (20-40); Mean Corpuscular HGB Conc 34.2 g/dl (31.0-36.0); Mean Corpuscular Hemoglobin 30.3 pg (27.0-33.0); Mean Corpuscular Volume 88.8 fL (80.0-98.0); Mean Platelet Volume 9.3 fL (9.4-12.4); Monocytes Absolute Auto 0.9 X10*3/uL (0.1-1.2); Monocytes Percent Auto 6.9 % (2-11); Neutrophils Absolute Auto 9.2 x10*3/uL (2.0-8.3); Neutrophils Percent Auto 71.5 % (45-73); Platelet Count 317 X10*3/uL (160-400); Red Blood Count 5.01 X10*6/uL (4.60-5.80); Red Cell Distribution Width 12.4 % (11.0-16.0); White Blood Count 12.8 X10*3/uL (4.8-10.8)
[2023-04-28 11:49] LABS: Appearance Urine Clear; Color Urine Yellow; Glucose Urine UA Negative (Negative); Leukocyte Esterase Urine Negative (Negative); Nitrite Urine Negative (Negative); PH 5.5 (5.0-9.0); Specific Gravity - Urine <= 1.005 (1.005-1.025); Urine Blood Negative (Negative); Urine Ketones Negative (Negative); Urine Protein Negative (Neg-Trace)
== END 2023-04-28 08:46 | disposition home or self-care (01) ==
LOC: HO.HMGCX 08:45
PROVIDERS: PCP Nurse Practitioner Family; Visit Provider Nurse Practitioner Family
DX: D72.829 Elevated white blood cell count, unspecified (principal); R82.90 Unspecified abnormal findings in urine
CPT/HCPCS: 36415; 71046; 81003; 85025; 87086

== ENCOUNTER 2023-08-18 12:58 | Outpatient (REF) | payer OTHER, SELFPAY ==
[2023-08-18 16:11] LABS: Appearance Urine Clear; Color Urine Yellow; Glucose Urine UA Negative (Negative); Leukocyte Esterase Urine Negative (Negative); Nitrite Urine Negative (Negative); PH 5.5 (5.0-9.0); Specific Gravity - Urine 1.015 (1.005-1.025); Urine Blood Negative (Negative); Urine Ketones Negative (Negative); Urine Protein Negative (Neg-Trace)
[2023-08-18 16:32] LABS: MANUAL DIFF FLAG NO
[2023-08-18 16:43] LABS: Basophils Absolute Auto 0.1 X10*3/uL (0.0-0.2); Basophils Percent Auto 0.5 % (0-2); Eosinophils Absolute Auto 0.2 X10*3/uL (0.0-0.4); Eosinophils Percent Auto 1.7 % (0-4); Hematocrit 41.3 % (42.0-52.0); Hemoglobin 14.4 g/dl (14.0-18.0); Imm Gran Abs Auto 0.06 X10*3/uL (0.00-0.03); Imm Gran Pct Auto 0.6 % (0.0-0.4); Lymphocytes Absolute Auto 2.6 X10*3/uL (1.2-4.9); Mean Corpuscular HGB Conc 34.9 g/dl (31.0-36.0); Mean Corpuscular Hemoglobin 31.1 pg (27.0-33.0); Mean Corpuscular Volume 89.2 fL (80.0-98.0); Mean Platelet Volume 9.7 fL (9.4-12.4); Monocytes Absolute Auto 0.4 X10*3/uL (0.1-1.2); Monocytes Percent Auto 4.3 % (2-11); Neutrophils Absolute Auto 6.8 x10*3/uL (2.0-8.3); Neutrophils Percent Auto 66.9 % (45-73); Platelet Count 315 X10*3/uL (160-400); Red Blood Count 4.63 X10*6/uL (4.60-5.80); Red Cell Distribution Width 12.3 % (11.0-16.0); White Blood Count 10.1 X10*3/uL (4.8-10.8)
[2023-08-18 16:57] LABS: Alanine Aminotransferase 30 U/L (0-40); Albumin Level 4.5 g/dL (3.5-5.0); Alkaline Phosphatase 83 U/L (39-117); Anion Gap 13 (12-20); Aspartate Amino Transferase 22 U/L (5-37); Bilirubin Total 0.6 mg/dL (0.0-1.0); Blood Urea Nitrogen 14 mg/dL (9-16); Calcium 9.6 mg/dL (8.4-10.2); Carbon Dioxide 25 mmol/L (22-29); Chloride 106 mmol/L (96-108); Estimated Glomerular Filt Rate > 60; Glucose Random 117 mg/dL (60-115); Sodium 140 mmol/L (135-145); Total Protein 7.2 g/dL (6.5-8.0)
== END 2023-08-18 12:59 | disposition home or self-care (01) ==
LOC: HO.HMGCLDS 12:58
PROVIDERS: PCP Nurse Practitioner Family; Visit Provider Nurse Practitioner Family
DX: D72.829 Elevated white blood cell count, unspecified (principal)
CPT/HCPCS: 36415; 80053; 81003; 85025

== ENCOUNTER 2024-04-01 15:55 | Outpatient (AMB) | payer OTHER, SELFPAY ==
[2024-04-01 15:58] VITALS: BP 118/70; PULSE 96; TEMP 36.7; O2SAT 97; BMI 28.1
--- NOTE | 2024-04-01 15:58 | MHC.PC.OV ---
Vital Signs 04/01/24 15:58 Height 5 ft 10 in Weight 196 lb BMI 28.1 BP 118/70 Blood Pressure Location Rt brachial Position Sitting Pulse 96 Pulse Source Pulse Oximeter Temp 98.0 F Temp Source Oral Pulse Oximetry (%) 97 Oxygen Delivery Method Room Air Intake Visit Reasons: Annual PE Intake Note: pt is here for annual exam Spinner Tender Required: No Accompanied by: Self / Same As Patient Allergies oxycodone [Percocet] Allergy (Intermediate, Verified 04/01/24 15:58) hives Tobacco use date assessed: 04/01/24 Dental Screening Dental Screen Date: 04/01/24 Did you have a dental visit in the last 12 months?: Yes Did you have a dental problem in the last 6 months where you did not have access to dental care?: No Was dental information given to patient?: Patient has dentist HPI Annual PE HPI Details History of Present Illness The patient is a 48-year-old male presenting with chronic lower back pain. The pain started following an incident where he fell from a deck many years ago. He has undergone surgery for this issue, but continues to experience significant pain. Pain management has been a challenge, and he currently requires the use of a cane to assist with ambulation. There is no reported exacerbation of symptoms with specific movements or activities, suggesting a constant level of discomfort. The patient denies any recent changes in symptom severity or new symptoms associated with the pain. He is actively addressing associated psychological symptoms, receiving treatment from both psychiatry and psychology for anxiety and depression. No suicidal or homicidal ideations are reported, indicating a stable mental health status. Health Maintenance - Colonoscopy is up to date Social History - Requires cane assistance for ambulation Review of Systems - Vision: Denies any blurred vision. - Neurological: Denies headaches. - Cardiovascular: Denies chest pain, shortness of breath. - Gastrointestinal: Denies blood in the stool, constipation, or diarrhea. - Genitourinary: Denies any urinary issues. Physical Exam General: Cooperative, healthy appearing, comfortable, no acute distress and well developed Orientation: Patient oriented x3 Limitations: Walks with a cane due to significant lower back history Head: Normal to inspection Ears: Hearing grossly normal bilaterally Nose: Normal external nose present Face and sinus: Normal facial exam Eyes: Appearance normal, both eyes and all related structures Neck: Normal visual inspection and Yes full ROM Respiratory: Normal respiratory effort and able to speak in complete sentences. Clear to auscultation bilaterally Cardiovascular: Regular rate and rhythm. Normal S1 and S2 GI: Normal to inspection. Soft to palpation and nontender Skin: No rashes or lesions noted Neuro: Patient oriented x3 Extremities: Normal to inspection Results Plan - Continue current pain management and assistive device use for chronic lower back pain. - Ongoing treatment and support from psychiatry and psychology for anxiety and depression. Patient was informed and verbally consented to the use of an ambient scribe for clinic note documentation during this visit. Discussion Notes We discussed the ongoing management of the patient's chronic lower back pain, reiterating the importance of continued use of assistive devices as necessary. I confirmed the patient is receiving psychiatric and psychological support for anxiety and depression, with no reported suicidal or homicidal thoughts. We agreed on the continuation of current treatment plans and to address any changes in symptoms or new concerns in future appointments. Patient Instructions - Continue using the cane for mobility support. - Attend scheduled psychiatric and psychological therapy sessions. - Monitor any changes in symptoms and report them promptly. [facility] Medical History PONV (postoperative nausea and vomiting) Erectile dysfunction Skin lesions Chronic GERD Lumbar radiculopathy Surgical History History of esophagogastroduodenoscopy (EGD) Hx of colonoscopy H/O left knee surgery H/O neck surgery History of repair of ACL History of back surgery No pertinent past surgical history Family History Father No problems noted. Mother No problems noted. Maternal Grandmother Diabetes mellitus Sister No problems noted. Social History Household Members: Significant Other and Children Housing: House Alcohol intake: current Alcohol intake frequency: holidays/special occasions only Alcohol type: beer Patient Tobacco Use Status: Former Tobacco user Tobacco use type: Cigarette Years Smoked: 10 e-Cigarette/Vaping Use: Currently Using Substance Use Type: Marijuana Current occupational status: unemployed Cognitive needs: No Hearing needs: No Vision needs: No Questionnaire PHQ-9 Over the last 2 weeks, how often have you been bothered by any of the following problems? 1. Little interest or pleasure in doing things: more than half the days 2. Feeling down, depressed, or hopeless: more than half the days 3. Trouble falling or staying asleep, or sleeping too much: nearly every day 4. Feeling tired or having little energy: more than half the days 5. Poor appetite or overeating: several days 6. Feeling bad about yourself - or that you are a failure or have let yourself or your family down: more than half the days 7. Trouble concentrating on things, such as reading the newspaper or watching television: more than half the days 8. Moving or speaking so slowly that other people could have noticed. Or the opposite - being so fidgety or restless that you have been moving around a lot more than usual: more than half the days 9. Thoughts that you would be better off or of hurting yourself in some way: several days Total score: 17 Depression Screening Interpretation: Positive (has a psychiatrist and therapist, denies any si or hi) Depression Screening Follow-up: Existing condition and In treatment Depression Screening Done: Yes 78003 - PHQ-9 Billing: Yes Source: Developed by Drs. Irivng Mae, Barbra Connors, Colton Fall and colleagues, with an educational jonathan from [employer]. Thrive Questionnaire Date Thrive assessed: 04/01/24 I am a: Patient What is your living situation today?: I have a steady place to live Within the past 12 months, did the food you bought not last and you didn't have the money to get more?: Never true Within the past 12 months, did you worry whether your food would run out before you got money to buy more?: Never true Do you have trouble paying for medicines?: No Do you have trouble getting transportation to medical appointments?: No Do you have trouble paying your heating and electricity bill?: No Do you have trouble taking care of your child, family member or friend?: No Do you have trouble with day-to-day activities such as bathing, preparing meals, shopping, managing finances, etc.?: Yes Are you currently unemployed and looking for a job?: No Are you interested in more education?: No Please select the resources that you would like help with: None Currently or been in a relationship where the following occur: No concerns reported THRIVE Score: 0 AUDIT C Alcohol Use Questionnaire (AUDIT-C) 1. How often do you have a drink containing alcohol?: Monthly or less 2. How many drinks containing alcohol do you have on a typical day when you are drinking?: 1 or 2 3. How often do you have six or more drinks on one occasion?: Never Total Score: 1 Score Reviewed/Action Taken: Yes JAKI-7 AMB Questionnaire JAKI-7 Date JAKI - 7 assessed: 04/01/24 Feeling nervous, anxious, or on edge: 2 = More than half the days Not being able to stop or control worryin = More than half the days Worrying too much about different things: 2 = More than half the days Trouble relaxin = More than half the days Being so restless that it is hard to sit still: 2 = More than half the days Becoming easily annoyed or irritable: 3 = Nearly every day Feeling afraid as if something awful might happen: 0 = Not at all Total JAKI-7 score (0-4 normal; 5-9 mild; 10-14 moderate; 15-21 severe): 13 Source: Developed by Drs. Irving Mae, Barbra Connors, Colton Fall and colleagues, with an educational jonathan from [employer]. JAKI-7 Assessment Billing JAKI-7 Assessment Tool: JAKI-7 Assessment 71912 Physical exam (Primary Care) BMI result Body Mass Index 28.1 Tobacco/Smoking Status: Tobacco use Status Tobacco use date assessed 04/01/24 04/01/24 15:59 Patient Tobacco Use Status Former Tobacco user 04/01/24 15:59 Tobacco use type Cigarette 04/01/24 15:59 e-Cigarette/Vaping Use Currently Using 04/01/24 15:59 PHQ-9: PHQ-9 Score PHQ-9: Total score 17 04/01/24 15:59 Depression Screening Interpretation: Positive (has a psychiatrist and therapist, denies any si or hi) Depression Screening Follow-up: Existing condition and In treatment Thrive Assessment: Date of Thrive Assessment Date Thrive assessed 04/01/24 04/01/24 15:59 Currently or been in a relationship where the following occur: No concerns reported Coding Level of Care Code Est Pt Prev Care 40-64y(24624) Diagnoses Encounter for routine adult physical exam with abnormal findings Z00. Screening for prostate cancer Z12.5 Additional Codes JAKI-7 Assessment Billing - JAKI-7 Assessment Tool: JAKI-7 Assessment 75384 ([id number]) PHQ-9 - 23428 - PHQ-9 Billing: Yes ([id number]) Assessment & Plan Assessment & Plan (1) Encounter for routine adult physical exam with abnormal findings: Code(s): Z00.01 - Encounter for general adult medical examination with abnormal findings Category: Medical (2) Screening for prostate cancer: Code(s): Z12.5 - Encounter for screening for malignant neoplasm of prostate Category: Medical Plan . Orders: Orders Complete Blood Count Auto Diff Today Z00.01 - Encounter for general adult medical examination with abnormal findings Comprehensive [place]. Panel Fast Today Z00.01 - Encounter for general adult medical examination with abnormal findings Lipid Panel Today Z00.01 - Encounter for general adult medical examination with abnormal findings TSH reflex Free T4 Today Z00.01 - Encounter for general adult medical examination with abnormal findings UA CC w/rflx Micro + Cult Today Z00.01 - Encounter for general adult medical examination with abnormal findings Prostate Specific Antigen Scr Today Z00.01 - Encounter for general adult medical examination with abnormal findings, Z12.5 - Encounter for screening for malignant neoplasm of prostate
== END 2024-04-01 16:28 | disposition home or self-care (01) ==
PROVIDERS: PCP Nurse Practitioner Family; Visit Provider Nurse Practitioner Family
DX: Z00.01 Encounter for general adult medical examination with abnormal findings (principal); Z12.5 Encounter for screening for malignant neoplasm of prostate

== ENCOUNTER → 2024-04-01 15:55 | Outpatient (BNVA) | payer OTHER, SELFPAY | PROVIDERS: PCP Nurse Practitioner Family; Visit Provider Nurse Practitioner Family | DX: Z00.01 Encounter for general adult medical examination with abnormal findings (principal) | CPT/HCPCS: 96127; 99396 ==

== ENCOUNTER 2024-04-18 09:34 | Outpatient (REF) | payer OTHER, SELFPAY ==
[2024-04-18 13:18] LABS: Appearance Urine Clear; Color Urine Yellow; Glucose Urine UA Negative (Negative); Leukocyte Esterase Urine Negative (Negative); Nitrite Urine Negative (Negative); Specific Gravity - Urine 1.015 (1.005-1.025); Urine Blood Negative (Negative); Urine Ketones Negative (Negative); Urine Protein Negative (Neg-Trace)
[2024-04-18 13:20] LABS: MANUAL DIFF FLAG NO
[2024-04-18 13:30] LABS: Basophils Percent Auto 0.4 % (0-2); Hematocrit 42.8 % (42.0-52.0); Hemoglobin 14.7 g/dl (14.0-18.0); Imm Gran Abs Auto 0.05 X10*3/uL (0.00-0.03); Imm Gran Pct Auto 0.5 % (0.0-0.4); Lymphocytes Absolute Auto 2.5 X10*3/uL (1.2-4.9); Lymphocytes Percent Auto 26.9 % (20-40); Mean Corpuscular HGB Conc 34.3 g/dl (31.0-36.0); Mean Corpuscular Hemoglobin 30.9 pg (27.0-33.0); Mean Corpuscular Volume 89.9 fL (80.0-98.0); Mean Platelet Volume 9.6 fL (9.4-12.4); Monocytes Absolute Auto 0.5 X10*3/uL (0.1-1.2); Monocytes Percent Auto 5.8 % (2-11); Neutrophils Absolute Auto 6.2 x10*3/uL (2.0-8.3); Neutrophils Percent Auto 66.4 % (45-73); Platelet Count 317 X10*3/uL (160-400); Red Blood Count 4.76 X10*6/uL (4.60-5.80); Red Cell Distribution Width 12.5 % (11.0-16.0); White Blood Count 9.3 X10*3/uL (4.8-10.8)
[2024-04-18 13:42] LABS: Alanine Aminotransferase 46 U/L (0-40); Albumin Level 4.3 g/dL (3.5-5.0); Alkaline Phosphatase 91 U/L (39-117); Anion Gap 9 (12-20); Aspartate Amino Transferase 29 U/L (5-37); Bilirubin Total 0.5 mg/dL (0.0-1.0); Blood Urea Nitrogen 12 mg/dL (9-16); Calcium 9.5 mg/dL (8.4-10.2); Carbon Dioxide 25 mmol/L (22-29); Chloride 108 mmol/L (96-108); Cholesterol 198 mg/dL (<200); Estimated Glomerular Filt Rate > 60; Glucose Fasting 101 mg/dL (60-99); HDL Cholesterol 33 mg/dL (>40); LDL Cholesterol Calculated 138 mg/dL (<100); Potassium 4.4 mmol/L (3.3-5.1); Sodium 138 mmol/L (135-145); Total Protein 7.3 g/dL (6.5-8.0); Triglycerides 136 mg/dL (<150)
[2024-04-18 13:57] LABS: Prostate Specific Antigen Scr 0.59 ng/mL (<0.05-4.0)
[2024-04-18 14:00] LABS: TSH reflex Free T4 1.27 uIU/mL (0.32-4.0)
== END 2024-04-18 09:35 | disposition home or self-care (01) ==
LOC: HO.HMGCLDS 09:34
PROVIDERS: PCP Nurse Practitioner Family; Visit Provider Nurse Practitioner Family
DX: Z00.01 Encounter for general adult medical examination with abnormal findings (principal); D64.9 Anemia, unspecified; Z12.5 Encounter for screening for malignant neoplasm of prostate; Z13.6 Encounter for screening for cardiovascular disorders
CPT/HCPCS: 36415; 80053; 80061; 81003; 84153; 84443; 85025

== ENCOUNTER 2024-05-10 09:59 | Outpatient (REF) | payer OTHER, SELFPAY ==
--- NOTE | ~2024-05-10 | US_ITS ---
CLINICAL HISTORY: R74.8 - Abnormal levels of other serum enzymes US abdomen complete Comparison: CT/UT/SR - ABD PELVIS WITH CONT [id number] - 12/22/17 09:32 EDT US - ABDOMEN ULTRASOUND [id number] - 04/05/16 08:45 EST Findings: The visualized pancreas is normal. The aorta and inferior vena cava are normal caliber. The liver is normal in size and echotexture. There is no intrahepatic bile duct dilatation. The common duct is 5 mm in diameter. The gallbladder is normal. There is no sonographic Zamarripa sign. The main portal vein is antegrade. The right kidney is 11.8 cm in length. The left kidney is 11.2 cm in length. The spleen is normal. No ascites. IMPRESSION: 1. Normal complete abdominal ultrasound. This document has been electronically signed by: Inderjit Alvarez MD on 05/10/2024 15:58:21
[2024-05-11 04:22] LABS: HBS Num1 19.82 mIU/mL (0-7.99); HBc Num1 0.07 S/CO (0.00-0.79); HBsAGNum1 0.31 S/CO (0.00-0.99); Hepatitis A Antibody IgM 0.14 Index (0-0.79); Hepatitis B Core Antibody Nonreactive (Nonreactive); Hepatitis B Surface Antigen Negative (Negative); ~HepC Num1 0.09 S/CO (0.00-0.79); ~Hepatitis A Antibody IgM Nonreactive (Nonreactive); ~Hepatitis B Surface Antibody REACTIVE (Nonreactive); ~Hepatitis C Antibody Nonreactive (Nonreactive)
== END 2024-05-10 10:00 | disposition home or self-care (01) ==
LOC: HO.US 09:59
PROVIDERS: PCP Nurse Practitioner Family; Visit Provider Nurse Practitioner Family
DX: R74.8 Abnormal levels of other serum enzymes (principal)
CPT/HCPCS: 36415; 76700; 86704; 86706; 86709; 86803; 87340

== ENCOUNTER → 2024-05-10 10:01 | Outpatient (BNV) | payer OTHER, SELFPAY | PROVIDERS: PCP Nurse Practitioner Family; Visit Provider Radiology Diagnostic Radiology | DX: R74.8 Abnormal levels of other serum enzymes (principal) | CPT/HCPCS: 76700 ==

== ENCOUNTER → 2024-07-16 08:31 | Outpatient (RCR) | payer OTHER, SELFPAY ==
--- NOTE | 2020-02-03 10:59 | MHC.PT.EP ---
[facility] [place] [facility] [place] [facility] [place] Office [address] [place]on Nieves [address] [phone] F: [phone] F: [phone] F: [phone] F: [phone] Physical Therapy Plan of Care Date of Evaluation: 02/03/20 Date of Surgery: Diagnosis: Weakness of L LE Assessment: Patient is a 44 year old R handed male who presents with s/s consistent with L LE weakness. He is on disability with history of C spine fusion, L spine fusion, L meniscectomy and L ACL recon. He does like to hike, walk, and stay active. His s/s have been worse over the last several months and has included weakness, pain and sensory issues. Current impairments include pain, strength, activity tolerance and functional mobility. Functional limitations include decreased ability to walk, stand, transfer, negotiate stairs, and perform weight bearing activities.. Patient is motivated with good rehab potential. Skilled PT will address impairments and functional limitations in order to achieve goals. Frequency and Duration: The patient will be seen 2x/week for 6 weeks Short Term Goals: I with HEP - 2 weeks Normal HS and gastroc flexibility - 3 weeks Able to walk/hike 20 minutes or more with no increased s/s - 3 weeks [facility] Goals: LE strength 4+/5 grossly or better - 5 weeks LEFS 66/80 - 6 weeks Able to walk/hike > 1 hour without increased s/s - 6 weeks Treatment Plan: Modalities to reduce pain, spasms and effusion. Manual therapy to restore motion and function. Therapeutic exercise to improve strength and flexibility. Neuromuscular re-education for posture and balance. Therapeutic activities to return to functional activities of daily living. Please sign and return to therapist. Thank you for your referral.
--- NOTE | 2020-04-08 18:01 | MHC.PT.DC ---
[facility] [place] Office [place] Office [place] Office [address] [place]on Nieves [address] [phone] F: [phone] F: [phone] F: [phone] F: [phone] Physical Therapy Discharge Report Diagnosis: Weakness of L LE Date of Surgery: Date of Evaluation: 02/03/20 Date of Discharge: 04/08/20 Treatments to Date: 16 Cancellations to Date: No Shows to Date: Discharge Status: Independent with HEP Recommend MD Follow-up Discharge Summary: Paul has been an active and highly motivated participant in his therapy. He has met some of his therapeutic goals and is stronger of his core and LEs though persists with L LE neurological symptoms of loss of sensation, mm strength, muscle ache and pain which can be dependent or independent of his activity level. Pt reports he feels stronger though still feels his leg give out without much warning at times. Paul's functional presentation and reports of pain and loss of LE function d/t neurological insult has been consistent throughout his course of therapy. F/U with MD recommended d/t continuing L LE symptoms and persisting functional deficits. LEFI questionnaire improved from 42/80 to 47/80 which is not a significant improvement of his subjective perception of his functional ability. Electronically signed by: Alireza Handy PT. Please sign and return to therapist. Thank you for your referral.
== END | disposition home or self-care (01) ==
LOC: HO.PTCHIC 02-03 09:43
PROVIDERS: Visit Provider Nurse Practitioner Family
DX: R53.1 Weakness (principal)
CPT/HCPCS: 97014; 97110; 97112; 97140; 97162

== ENCOUNTER 2024-10-07 11:02 | Outpatient (REF) | payer OTHER, SELFPAY ==
[2024-10-07 13:56] LABS: Alanine Aminotransferase 54 U/L (0-40); Albumin Level 4.6 g/dL (3.5-5.0); Alkaline Phosphatase 96 U/L (39-117); Anion Gap 11 (12-20); Aspartate Amino Transferase 35 U/L (5-37); Blood Urea Nitrogen 14 mg/dL (9-16); Calcium 9.3 mg/dL (8.4-10.2); Carbon Dioxide 25 mmol/L (22-29); Chloride 108 mmol/L (96-108); Estimated Glomerular Filt Rate > 60; Potassium 4.5 mmol/L (3.3-5.1); Sodium 139 mmol/L (135-145); Total Protein 7.1 g/dL (6.5-8.0)
== END 2024-10-07 11:03 | disposition home or self-care (01) ==
LOC: HO.HMGCLDS 11:02
PROVIDERS: PCP Nurse Practitioner Family; Visit Provider Nurse Practitioner Family
DX: R74.8 Abnormal levels of other serum enzymes (principal)
CPT/HCPCS: 36415; 80053; 96127; 99212

== ENCOUNTER 2024-10-07 11:02 | Outpatient (AMB) | payer OTHER, SELFPAY ==
--- NOTE | 2024-10-07 11:12 | MHC.PC.OV ---
Vital Signs 10/07/24 11:14 Height 5 ft 10 in Weight 185 lb BMI 26.5 BP 120/84 Blood Pressure Location Lt brachial Position Sitting Respiration 16 Pulse 92 Pulse Source Pulse Oximeter Temp 98.3 F Temp Source Oral Pulse Oximetry (%) 96 Oxygen Delivery Method Room Air Intake Visit Reasons: 6 months f/up Truss Maker Required: No Accompanied by: Self / Same As Patient Allergies oxycodone (Percocet) Allergy (Intermediate, Verified 10/07/24 11:15) hives Tobacco use date assessed: 10/07/24 Dental Screening Dental Screen Date: 10/07/24 Did you have a dental visit in the last 12 months?: Yes Did you have a dental problem in the last 6 months where you did not have access to dental care?: No Was dental information given to patient?: Patient has dentist HPI 6 months f/up HPI Details Chief Complaint The patient presents for a follow-up regarding elevated liver enzymes. History of Present Illness The patient is a 49-year-old male presenting with elevated liver enzymes. The issue was first noted back in March when his ALT levels were elevated. The patient denies alcohol consumption, which is relevant to the liver enzyme elevation. An abdominal ultrasound was performed, which returned normal results, ruling out fatty liver disease. The patient denies experiencing any chest pain, shortness of breath, abdominal pain, blood in stool, constipation, or diarrhea. Social History Health Maintenance Review of Systems - Cardiovascular: Denies chest pain or dyspnea. - Gastrointestinal: Denies abdominal pain, blood in stool, constipation, or diarrhea. Physical Exam General: Cooperative, healthy appearing, comfortable, no acute distress and well developed Orientation: Patient oriented x3 Limitations: No limitations Head: Normal to inspection Ears: Hearing grossly normal bilaterally Nose: Normal external nose present Face and sinus: Normal facial exam Eyes: Appearance normal, both eyes and all related structures Neck: Normal visual inspection and Yes full ROM Respiratory: Normal respiratory effort and able to speak in complete sentences. Clear to auscultation bilaterally Cardiovascular: Regular rate and rhythm. Normal S1 and S2 GI: Normal to inspection. Soft to palpation and nontender Skin: No rashes or lesions noted Neuro: Patient oriented x3 Extremities: Normal to inspection Results - Labs: Elevated ALT levels noted in March. - Imaging: Normal abdominal ultrasound ruling out fatty liver disease. Plan repeat [facility] to recheck liver enzymes PFSH Medical History PONV (postoperative nausea and vomiting) Erectile dysfunction Skin lesions Chronic GERD Lumbar radiculopathy Surgical History History of esophagogastroduodenoscopy (EGD) Hx of colonoscopy H/O left knee surgery H/O neck surgery History of repair of ACL History of back surgery No pertinent past surgical history Family History Father No problems noted. Mother No problems noted. Maternal Grandmother Diabetes mellitus Sister No problems noted. Social History Household Members: Significant Other and Children Housing: House Alcohol intake: current Alcohol intake frequency: holidays/special occasions only Alcohol type: beer Patient Tobacco Use Status: Former Tobacco user Tobacco use type: Cigarette Years Smoked: 10 e-Cigarette/Vaping Use: Currently Using Substance Use Type: Marijuana Current occupational status: unemployed Cognitive needs: No Hearing needs: No Vision needs: No Questionnaire PHQ-9 Over the last 2 weeks, how often have you been bothered by any of the following problems? 1. Little interest or pleasure in doing things: more than half the days 2. Feeling down, depressed, or hopeless: more than half the days 3. Trouble falling or staying asleep, or sleeping too much: nearly every day 4. Feeling tired or having little energy: more than half the days 5. Poor appetite or overeating: several days 6. Feeling bad about yourself - or that you are a failure or have let yourself or your family down: more than half the days 7. Trouble concentrating on things, such as reading the newspaper or watching television: more than half the days 8. Moving or speaking so slowly that other people could have noticed. Or the opposite - being so fidgety or restless that you have been moving around a lot more than usual: more than half the days 9. Thoughts that you would be better off or of hurting yourself in some way: several days Total score: 17 Depression Screening Interpretation: Positive (has a psychiatrist and therapist, denies any si or hi) Depression Screening Follow-up: Existing condition and In treatment Depression Screening Done: Yes 66225 - PHQ-9 Billing: Yes Source: Developed by Drs. Irving Mae, Barbra Connors, Colton Fall and colleagues, with an educational jonathan from [employer]. Thrive Questionnaire Date Thrive assessed: 04/01/24 JAKI-7 AMB Questionnaire JAKI-7 Date JAKI - 7 assessed: 10/07/24 Feeling nervous, anxious, or on edge: 2 = More than half the days Not being able to stop or control worryin = More than half the days Worrying too much about different things: 2 = More than half the days Trouble relaxin = More than half the days Being so restless that it is hard to sit still: 2 = More than half the days Becoming easily annoyed or irritable: 3 = Nearly every day Feeling afraid as if something awful might happen: 0 = Not at all Total JAKI-7 score (0-4 normal; 5-9 mild; 10-14 moderate; 15-21 severe): 13 Source: Developed by Drs. Irving Mae, Barbra Connors, Colton Fall and colleagues, with an educational jonathan from [employer]. JAKI-7 Assessment Billing JAKI-7 Assessment Tool: JAKI-7 Assessment 49871 Physical exam (Primary Care) Vital Signs: Last Vital Signs Temp 98.3 F 10/07/24 11:14 Pulse 92 10/07/24 11:14 Resp 16 10/07/24 11:14 BP 120/84 10/07/24 11:14 Pulse Ox 96 10/07/24 11:14 Oxygen Delivery Method Room Air 10/07/24 11:14 BMI result Body Mass Index 26.5 Tobacco/Smoking Status: Tobacco use Status Tobacco use date assessed 10/07/24 10/07/24 11:17 Patient Tobacco Use Status Former Tobacco user 10/07/24 11:14 Tobacco use type Cigarette 10/07/24 11:14 e-Cigarette/Vaping Use Currently Using 10/07/24 11:14 PHQ-9: PHQ-9 Score PHQ-9: Total score 17 10/07/24 11:18 Depression Screening Interpretation: Positive (has a psychiatrist and therapist, denies any si or hi) Depression Screening Follow-up: Existing condition and In treatment Thrive Assessment: Date of Thrive Assessment Date Thrive assessed 04/01/24 10/07/24 11:14 Coding Level of Care Code Est Pt Level 3 (58144) Diagnoses Elevated liver enzymes R74.8 Additional Codes JAKI-7 Assessment Billing - JAKI-7 Assessment Tool: JAKI-7 Assessment 19423 ([id number]) PHQ-9 - 40820 - PHQ-9 Billing: Yes ([id number]) Assessment & Plan Assessment & Plan (1) Elevated liver enzymes: Code(s): R74.8 - Abnormal levels of other serum enzymes Category: Medical Plan . Orders: Orders Comprehensive Met. Panel Today R74.8 - Abnormal levels of other serum enzymes
[2024-10-07 11:14] VITALS: BP 120/84; PULSE 92; RESP 16; TEMP 36.8; O2SAT 96; BMI 26.5
== END 2024-10-07 11:34 | disposition home or self-care (01) ==
LOC: HO.HMCC 11:03
PROVIDERS: PCP Nurse Practitioner Family; Visit Provider Nurse Practitioner Family
DX: R74.8 Abnormal levels of other serum enzymes (principal)

== ENCOUNTER 2024-12-23 11:18 | Outpatient (REF) | payer OTHER, SELFPAY ==
[2024-12-23 13:48] LABS: Alanine Aminotransferase 67 U/L (0-40); Albumin Level 4.8 g/dL (3.5-5.0); Alkaline Phosphatase 111 U/L (39-117); Anion Gap 9 (12-20); Aspartate Amino Transferase 39 U/L (5-37); Blood Urea Nitrogen 11 mg/dL (9-16); Calcium 9.6 mg/dL (8.4-10.2); Carbon Dioxide 26 mmol/L (22-29); Chloride 107 mmol/L (96-108); Estimated Glomerular Filt Rate > 60; Potassium 4.4 mmol/L (3.3-5.1); Sodium 138 mmol/L (135-145); Total Protein 7.4 g/dL (6.5-8.0)
[2024-12-23 14:24] LABS: HBS Num1 18.65 mIU/mL (0-7.99); HBc Num1 0.09 S/CO (0.00-0.79); HBsAGNum1 0.49 S/CO (0.00-0.99); Hepatitis A Antibody IgM 0.27 Index (0-0.79); Hepatitis B Surface Antigen Negative (Negative); ~HepC Num1 0.07 S/CO (0.00-0.79); ~Hepatitis A Antibody IgM Nonreactive (Nonreactive); ~Hepatitis B Surface Antibody REACTIVE (Nonreactive); ~Hepatitis C Antibody Nonreactive (Nonreactive)
== END 2024-12-23 11:19 | disposition home or self-care (01) ==
LOC: HO.HMGCLDS 11:18
PROVIDERS: PCP Nurse Practitioner Family; Visit Provider Nurse Practitioner Family
DX: R74.8 Abnormal levels of other serum enzymes (principal)
CPT/HCPCS: 36415; 80053; 86704; 86706; 86709; 86803; 87340

== ENCOUNTER 2025-01-15 11:35 | Outpatient (REF) | payer OTHER, SELFPAY ==
[2025-01-15 15:55] LABS: Alanine Aminotransferase 50 U/L (0-40); Albumin Level 4.6 g/dL (3.5-5.0); Alkaline Phosphatase 85 U/L (39-117); Aspartate Amino Transferase 29 U/L (5-37); Carcinoembryonic Antigen 2.30 ng/mL; Total Protein 7.0 g/dL (6.5-8.0)
== END 2025-01-15 11:36 | disposition home or self-care (01) ==
LOC: HO.HMGCLDS 11:35
PROVIDERS: PCP Nurse Practitioner Family; Visit Provider Nurse Practitioner Family
DX: R74.8 Abnormal levels of other serum enzymes (principal)
CPT/HCPCS: 36415; 80076; 82378; 86015; 86301; 86381